=== PATIENT | male | born 1945 | race Caucasian/White ===

== ENCOUNTER 2018-06-28 12:05 | Observation (INO) ==
--- NOTE | 2018-06-28 13:30 | XR ---
EXAM DATE: 06/28/2018 1:22 PM EST AGE/SEX: 72 years / Male INDICATIONS: Stroke symptoms, slurred speech, weakness, nausea. CLINICAL DATA: This is the patient's initial encounter. Patient reports that signs and symptoms have been present for 1 day and indicates a pain score of 0/10. MEDICAL/SURGICAL HISTORY: None. None. COMPARISON: No prior exams available for comparison. FINDINGS: Minimal airspace disease at the left lung base. The cardiomediastinal contours are unremarkable. Oss eous structures are intact. CONCLUSION: 1. Minimal left lung base atelectasis. Electronically signed by: Viraj Whitt MD 06/28/2018 1:28 PM EST
--- NOTE | 2018-06-28 13:39 | ED ---
HPI General Chief complaint: Neuro Symptoms/Deficit Stated complaint: Neuro Time Seen by Provider: 06/28/18 13:00 History of Present Illness HPI narrative: Patient is a 72-year-old male presents for evaluation of some mild slurred speech and right-sided facial droop that the patient first noted here about 0400 this a.m. Patient states he first noticed it after he woke up sat on the side of the bed and started getting up. He is also noticed some "wobbly" gait. Patient states his been happening on and off to him for some time. He is not on any blood thinners, is never had a stroke before. Does have a history of diabetes high blood pressure and high cholesterol. Denies a history of heart murmur. States symptoms are mild, started 0400, constant, associated signs symptoms in context as above. Related Data Home Medications Medication Instructions Recorded Confirmed albuterol sulfate [ProAir HFA] 1 puff INHALATION Q4-6H PRN 06/28/18 06/28/18 albuterol sulfate [Ventolin HFA] 1 puff INHALATION Q4-6H PRN 06/28/18 06/28/18 finasteride 5 mg PO DAILY 06/28/18 06/28/18 furosemide 40 mg PO DAILY 06/28/18 06/28/18 gabapentin 300 mg PO DAILY 06/28/18 06/28/18 glimepiride 4 mg PO QAM 06/28/18 06/28/18 lisinopril 40 mg PO DAILY 06/28/18 06/28/18 lovastatin 20 mg PO DAILY 06/28/18 06/28/18 metformin 500 mg PO BID 06/28/18 06/28/18 potassium chloride 10 meq PO DAILY 06/28/18 06/28/18 pramipexole 1 mg PO HS 06/28/18 06/28/18 terazosin 10 mg PO DAILY 06/28/18 06/28/18 tiotropium bromide [Spiriva 2 puff INHALATION DAILY 06/28/18 06/28/18 Respimat] umeclidinium-vilanterol [Anoro 1 inh INHALATION Q24H 06/28/18 06/28/18 Ellipta] Allergies Allergy/AdvReac Type Severity Reaction Status Date / Time No Known Allergies Allergy Verified 06/28/18 12:10 Review of Systems ROS: all other systems reviewed are negative [facility] Medical History Medical History Asthma (Acute) BPH (benign prostatic hyperplasia) (Acute) COPD (chronic obstructive pulmonary disease) (Acute) Diabetes (Acute) Diverticulosis (Acute) Hyperlipidemia (Acute) Obesity (Acute) Restless leg syndrome (Acute) Surgical History Surgical History No history of previous surgery (Acute) Social History Social History Substance History: No History of Abuse Second Hand Smoke Exposure: Yes Smoking Status: Former smoker Tobacco Type: Cigarettes How Often Do You Have a Drink Containing Alcohol: 4 or more times a week Recent Travel in [facility] within the Last 8 Weeks: No Recent Out of Country Travel within the Last 8 Weeks: No Immunization History Tetanus Immunization: Unsure Exam Narrative Exam Narrative: GENERAL: Well-developed well-nourished no obvious distress. SKIN: Focused skin assessment warm/dry. HEAD: Atraumatic. Normocephalic. EYES: Pupils equal and round. No scleral icterus. No injection or drainage. ENT: No nasal bleeding or discharge. Mucous membranes pink and moist. NECK: Trachea midline. No JVD. CARDIOVASCULAR: Regular rate and rhythm. 2 out of 6 to 3 out of 6 systolic murmur best heard in the right sternal border. RESPIRATORY: No accessory muscle use. Clear to auscultation. Breath sounds equal bilaterally. GASTROINTESTINAL: Abdomen soft, non-tender, nondistended. Hepatic and splenic margins not palpable. MUSCULOSKELETAL: No obvious deformities. No clubbing. No cyanosis. No edema. NEUROLOGICAL: Awake and alert and oriented, perhaps some mild dysarthria the patient does have a thick accent and this may be his baseline. The family states that he is speaking like his tongue is thick. There is a mild right- sided facial droop as well. 5 out of 5 strength in all 4 extremities, cerebellar testing negative. Otherwise his cranial nerves are intact. Total NIH stroke scale is 2. PSYCHIATRIC: Appropriate mood and affect; insight and judgment normal. Course Initial Documented Vital Signs Temperature 97.9 F 06/28/18 12:08 Pulse Rate 100 H 06/28/18 12:08 Respiratory Rate 18 06/28/18 12:08 Blood Pressure 156/68 H 06/28/18 12:08 Pulse Oximetry 95 06/28/18 12:08 Last Documented Vital Signs Temperature 97.7 F 06/29/18 08:00 Pulse Rate 91 H 06/29/18 08:00 Respiratory Rate 16 06/29/18 08:00 Blood Pressure 153/79 H 06/29/18 08:00 Pulse Oximetry 96 06/29/18 08:00 Sign Out Sign Out Data: Patient Sign Out occurred on 06/28/18 at 15:16. Patient's care was discussed, and care was transferred from Marquez Peter MD to Lorenza Jones DO. Sign Out Comment: Patient awaiting CT head and CTA of the head. Total NIH stroke scale of 2 for some mild dysarthria and right-sided facial droop. This appears to be a mild acute subacute CVA patient probably should be admitted. Last updated by Marquez Peetr MD at 06/28/18 15:08 Post-Handoff Eval: Patient signed out to me by Dr. Peter. 72yM presenting with right facial droop and dysarthria starting at 04:00 today, on my exam only has slight dysarthria but no facial droop, extremity weakness, aphasia, or other neuro deficits. His workup thus far is essentially unremarkable, will need to stay for TIA/ CVA pathway (MRI, echo, etc.). Patient understands and agrees with plan. Medical Decision Making MDM Narrative Medical Screen Exam Complete: Yes Emergency Medical Condition: Yes Lab Data Result diagrams: 06/29/18 06:19 06/29/18 06:19 Lab Results 06/28/18 06/28/18 06/28/18 Range/Units 13:10 13:10 13:29 WBC 9.0 (4.0-11.0) th/mm3 RBC 4.11 L (4.50-5.90) mil/mm3 Hgb 12.7 L (13.0-17.0) gm/dL Hct 36.6 L (39.0-51.0) % MCV 89.1 (80.0-100.0) fL MCH 30.8 (27.0-34.0) pg MCHC 34.6 (32.0-36.0) % RDW 15.6 (11.6-17.2) % Plt Count 201 (150-450) th/mm3 MPV 8.1 (7.0-11.0) fL Neut % (Auto) 70.0 (16.0-70.0) % Lymph % (Auto) 20.4 (9.0-44.0) % [place] % (Auto) 7.7 (0.0-8.0) % Eos % (Auto) 1.3 (0.0-4.0) % Baso % (Auto) 0.6 (0.0-2.0) % Neut # (Auto) 6.3 (1.8-7.7) th/mm3 Lymph # (Auto) 1.8 (1.0-4.8) th/mm3 [place] # (Auto) 0.7 (0.0-0.9) th/mm3 Eos # (Auto) 0.1 (0.0-0.4) th/mm3 Baso # (Auto) 0.1 (0.0-0.2) th/mm3 WBC Differential . Differential Comment Auto diff final Sodium 136 (136-145) meq/L Potassium 3.7 (3.5-5.1) meq/L Chloride 97 L (98-107) meq/L Carbon Dioxide 29.2 (21.0-32.0) meq/L Anion Gap 10 (5-15) meq/L BUN 40 H (7-18) mg/dL Creatinine 1.52 H (0.60-1.30) mg/dL Estimated GFR 45 L (>89) mL/min POC Glucose (68-110) mg/dl Random Glucose 273 H (74-106) mg/dL Calcium 8.8 (8.5-10.1) mg/dL Magnesium 2.3 (1.5-2.5) mg/dL Total Bilirubin 0.6 (0.2-1.0) mg/dL AST 8 L (15-37) U/L ALT 30 (12-78) U/L Alkaline Phosphatase 83 (45-117) U/L Troponin I Less than 0.02 L (0.02-0.05) ng/mL Total Protein 7.2 (6.4-8.2) g/dL Albumin 3.3 L (3.4-5.0) g/dL Triglycerides (42-150) mg/dL Cholesterol (120-200) mg/dL LDL Cholesterol, Calc (0-99) mg/dL HDL Cholesterol (40.0-60.0) mg/dL Cholesterol/HDL Ratio Ratio Urine Color Yellow (Yellw/Straw) Urine Clarity Hazy H (Clear) Urine pH 5.0 (5.0-8.5) Ur Specific Devon 1.019 (1.002-1.035) Urine Protein 30 H (Neg-Trace) mg/dL Urine Glucose (UA) 150 H (Negative) mg/dL Urine Ketones Negative (Negative) mg/dL Urine Occult Blood Negative (Negative) Urine Nitrate Negative (Negative) Urine Bilirubin Negative (Negative) Urine Urobilinogen Less than 2 (Less than 2) mg/dL Ur Leukocyte Esterase Negative (Negative) Urine WBC 2 (0-5) /hpf Ur Squamous Epith Cells 1 (0-5) /hpf Hyaline Casts 11 (0-3) /lpf Micro UA Comment Culture not ind Ur Microscopic Review Not Reportable Urine Culture Comments Culture not ind 06/28/18 06/29/18 06/29/18 Range/Units 20:30 06:19 06:19 WBC 8.8 (4.0-11.0) th/mm3 RBC 4.63 (4.50-5.90) mil/mm3 Hgb 14.3 (13.0-17.0) gm/dL Hct 40.6 (39.0-51.0) % MCV 87.8 (80.0-100.0) fL MCH 30.9 (27.0-34.0) pg MCHC 35.2 (32.0-36.0) % RDW 15.3 (11.6-17.2) % Plt Count 198 (150-450) th/mm3 MPV 8.3 (7.0-11.0) fL Neut % (Auto) 72.9 H (16.0-70.0) % Lymph % (Auto) 18.8 (9.0-44.0) % [place] % (Auto) 6.2 (0.0-8.0) % Eos % (Auto) 1.6 (0.0-4.0) % Baso % (Auto) 0.5 (0.0-2.0) % Neut # (Auto) 6.4 (1.8-7.7) th/mm3 Lymph # (Auto) 1.7 (1.0-4.8) th/mm3 [place] # (Auto) 0.5 (0.0-0.9) th/mm3 Eos # (Auto) 0.1 (0.0-0.4) th/mm3 Baso # (Auto) 0.0 (0.0-0.2) th/mm3 WBC Differential . Differential Comment Auto diff final Sodium 139 (136-145) meq/L Potassium 3.5 (3.5-5.1) meq/L Chloride 101 (98-107) meq/L Carbon Dioxide 29.4 (21.0-32.0) meq/L Anion Gap 9 (5-15) meq/L BUN 26 H (7-18) mg/dL Creatinine 0.90 (0.60-1.30) mg/dL Estimated GFR 83 L (>89) mL/min POC Glucose 164 H (68-110) mg/dl Random Glucose 154 H D (74-106) mg/dL Calcium 8.6 (8.5-10.1) mg/dL Magnesium (1.5-2.5) mg/dL Total Bilirubin (0.2-1.0) mg/dL AST (15-37) U/L ALT (12-78) U/L Alkaline Phosphatase (45-117) U/L Troponin I (0.02-0.05) ng/mL Total Protein (6.4-8.2) g/dL Albumin (3.4-5.0) g/dL Triglycerides 408 H (42-150) mg/dL Cholesterol 149 (120-200) mg/dL LDL Cholesterol, Calc (0-99) mg/dL HDL Cholesterol 24.1 L (40.0-60.0) mg/dL Cholesterol/HDL Ratio 6.18 Ratio Urine Color (Yellw/Straw) Urine Clarity (Clear) Urine pH (5.0-8.5) Ur Specific [place] (1.002-1.035) Urine Protein (Neg-Trace) mg/dL Urine Glucose (UA) (Negative) mg/dL Urine Ketones (Negative) mg/dL Urine Occult Blood (Negative) Urine Nitrate (Negative) Urine Bilirubin (Negative) Urine Urobilinogen (Less than 2) mg/dL Ur Leukocyte Esterase (Negative) Urine WBC (0-5) /hpf Ur Squamous Epith Cells (0-5) /hpf Hyaline Casts (0-3) /lpf Micro UA Comment Ur Microscopic Review Urine Culture Comments 11/08/18 Range/Units 08:22 WBC (4.0-11.0) th/mm3 RBC (4.50-5.90) mil/mm3 Hgb (13.0-17.0) gm/dL Hct (39.0-51.0) % MCV (80.0-100.0) fL MCH (27.0-34.0) pg MCHC (32.0-36.0) % RDW (11.6-17.2) % Plt Count (150-450) th/mm3 MPV (7.0-11.0) fL Neut % (Auto) (16.0-70.0) % Lymph % (Auto) (9.0-44.0) % [place] % (Auto) (0.0-8.0) % Eos % (Auto) (0.0-4.0) % Baso % (Auto) (0.0-2.0) % Neut # (Auto) (1.8-7.7) th/mm3 Lymph # (Auto) (1.0-4.8) th/mm3 [place] # (Auto) (0.0-0.9) th/mm3 Eos # (Auto) (0.0-0.4) th/mm3 Baso # (Auto) (0.0-0.2) th/mm3 WBC Differential Differential Comment Sodium (136-145) meq/L Potassium (3.5-5.1) meq/L Chloride (98-107) meq/L Carbon Dioxide (21.0-32.0) meq/L Anion Gap (5-15) meq/L BUN (7-18) mg/dL Creatinine (0.60-1.30) mg/dL Estimated GFR (>89) mL/min POC Glucose 187 H (68-110) mg/dl Random Glucose (74-106) mg/dL Calcium (8.5-10.1) mg/dL Magnesium (1.5-2.5) mg/dL Total Bilirubin (0.2-1.0) mg/dL AST (15-37) U/L ALT (12-78) U/L Alkaline Phosphatase (45-117) U/L Troponin I (0.02-0.05) ng/mL Total Protein (6.4-8.2) g/dL Albumin (3.4-5.0) g/dL Triglycerides (42-150) mg/dL Cholesterol (120-200) mg/dL LDL Cholesterol, Calc (0-99) mg/dL HDL Cholesterol (40.0-60.0) mg/dL Cholesterol/HDL Ratio Ratio Urine Color (Yellw/Straw) Urine Clarity (Clear) Urine pH (5.0-8.5) Ur Specific Devon (1.002-1.035) Urine Protein (Neg-Trace) mg/dL Urine Glucose (UA) (Negative) mg/dL Urine Ketones (Negative) mg/dL Urine Occult Blood (Negative) Urine Nitrate (Negative) Urine Bilirubin (Negative) Urine Urobilinogen (Less than 2) mg/dL Ur Leukocyte Esterase (Negative) Urine WBC (0-5) /hpf Ur Squamous Epith Cells (0-5) /hpf Hyaline Casts (0-3) /lpf Micro UA Comment Ur Microscopic Review Urine Culture Comments Imaging Data Radiologist's impression: Chest X-Ray 06/28/18 13:00 CONCLUSION: 1. Minimal left lung base atelectasis. Head CT 06/28/18 13:00 CONCLUSION: 1. No acute intracranial abnormality. . Head CTA 06/28/18 13:00 CONCLUSION: 1. Negative CTA Head. 2. No evidence of intraluminal filling defects or steno-occlusive changes. 3. Patent dural sinuses and cortical veins; no evidence of venoocclusive disease. . Neck CTA 06/28/18 13:00 CONCLUSION: 1. Mild eccentric calcified plaque in both carotid arteries. 2. No evidence of intraluminal filling defects or significant steno-occlusive disease. 3. Patent vertebral arteries. Head MRI 06/28/18 17:12 CONCLUSION: Within normal limits for age. No bleed, acute infarct or other acute intracranial abnormality. Discharge Plan Discharge Disposition Patient Disposition: 30 Still Patient Discharge Condition Condition: Stable Discharge Details Anticipated Discharge Date: 06/29/18 Diagnosis: Dysarthria, Acute CVA (cerebrovascular accident) Physicians Team ED Provider: Lorenza Jones Primary Care Provider: Francisco Walton Attending Provider: Devon Gay Status ED Status: Left Department Discharge Information Discharge Date/Time: 06/28/18 19:48
[2018-06-28 13:54] LABS: Baso # (Auto) 0.1 th/mm3 (0.0-0.2); Baso % (Auto) 0.6 % (0.0-2.0); Eos # (Auto) 0.1 th/mm3 (0.0-0.4); Eos % (Auto) 1.3 % (0.0-4.0); Hematocrit 36.6 % (39.0-51.0); Hemoglobin 12.7 gm/dL (13.0-17.0); Lymph # (Auto) 1.8 th/mm3 (1.0-4.8); Lymph % (Auto) 20.4 % (9.0-44.0); Mean Corpuscular HGB Conc 34.6 % (32.0-36.0); Mean Corpuscular Hemoglobin 30.8 pg (27.0-34.0); Mean Corpuscular Volume 89.1 fL (80.0-100.0); Mean Platelet Volume 8.1 fL (7.0-11.0); Mono # (Auto) 0.7 th/mm3 (0.0-0.9); Mono % (Auto) 7.7 % (0.0-8.0); Neut # (Auto) 6.3 th/mm3 (1.8-7.7); Platelet Count 201 th/mm3 (150-450); Red Blood Count 4.11 mil/mm3 (4.50-5.90); Red Cell Distribution Width 15.6 % (11.6-17.2)
[2018-06-28 14:07] LABS: Bilirubin,Urine Negative (Negative); Clarity,Urine Hazy (Clear); Color,Urine Yellow (Yellw/Straw); Glucose,Urine (UA) 150 mg/dL (Negative); Hyaline Casts,Urine 11 /lpf (0-3); Leukocyte Esterase,Urine Negative (Negative); Nitrite,Urine Negative (Negative); Specific Gravity,Urine 1.019 (1.002-1.035); Squamous Epithelial Cell,Urine 1 /hpf (0-5)
[2018-06-28 14:11] LABS: Albumin 3.3 g/dL (3.4-5.0); Anion Gap 10 meq/L (5-15); Aspartate Aminotransferase 8 U/L (15-37); Blood Urea Nitrogen 40 mg/dL (7-18); Calcium 8.8 mg/dL (8.5-10.1); Carbon Dioxide 29.2 meq/L (21.0-32.0); Chloride 97 meq/L (98-107); Glomerular Filtration Rate 45 mL/min (>89); Glucose,Random 273 mg/dL (74-106); Magnesium 2.3 mg/dL (1.5-2.5); Potassium 3.7 meq/L (3.5-5.1); Sodium 136 meq/L (136-145)
[2018-06-28 14:12] LABS: Alanine Aminotransferase 30 U/L (12-78)
[2018-06-28 14:16] LABS: Alkaline Phosphatase 83 U/L (45-117); Total Protein 7.2 g/dL (6.4-8.2)
--- NOTE | 2018-06-28 15:54 | CT ---
EXAM DATE: 06/28/2018 3:51 PM EST AGE/SEX: 72 years / Male INDICATIONS: Slurred speech, visual disturbance CLINICAL DATA: This is the patient's initial encounter. Patient reports that signs and symptoms have been present for 1 day and indicates a pain score of 0/10. MEDICAL/SURGICAL HISTORY: Chronic obstructive pulmonary disease. Diabetes. None. RADIATION DOSE: 35.29 CTDI (mGy) COMPARISON: No prior exams available for comparison. TECHNIQUE: CT of the head without contrast. Using automated exposure control and adjustment of the mA and/or kV according to patient size, radiation dose was kept as low as reasonably achievable to ob tain optimal diagnostic quality images. DICOM format image data is available electronically for revi ew and comparison. FINDINGS: Cerebrum: The ventricles are normal for age. No evidence of midline shift, mass lesion, hemorrhage o r acute infarction. No extraaxial fluid collections are seen. Posterior Fossa: The cerebellum and brainstem are intact. The 4th ventricle is midline. The cerebe llopontine angle is unremarkable. Extracranial: The visualized portion of the orbits is intact. Skull: The calvaria is intact. No evidence of skull fracture. CONCLUSION: 1. No acute intracranial abnormality. . Electronically signed by: Viraj Whitt MD 06/28/2018 3:53 PM EST
--- NOTE | 2018-06-28 16:54 | CT ---
EXAM DATE: 06/28/2018 4:49 PM EST AGE/SEX: 72 years / Male INDICATIONS: Slurred speech, visual disturbance CLINICAL DATA: This is the patient's initial encounter. Patient reports that signs and symptoms have been present for 1 day and indicates a pain score of 0/10. MEDICAL/SURGICAL HISTORY: Chronic obstructive pulmonary disease. Diabetes. None. RADIATION DOSE: 28.30 CTDI (mGy) ; Combined studies COMPARISON: No prior exams available for comparison. TECHNIQUE: Volumetric scanning was performed using a multirow detector CT scanner during bolus infus ion of 70 ml Omnipaque 350 (iohexol) nonionic water-soluble contrast as a cumulative dose for multip le exams. The data was postprocessed with a variety of visualization algorithms including full-volu me maximum intensity projection, multiplanar sliding thin-slab reformation, curved-planar reformation , and surface-rendering techniques. Using automated exposure control and adjustment of the mA and/or kV according to patient size, radiation dose was kept as low as reasonably achievable to obtain opti mal diagnostic quality images. DICOM format image data is available electronically for review and co mparison. FINDINGS: Aortic Arch: There is a three-vessel origin of the great vessels from the aorta. No evidence of ost ial narrowing Right Carotid: The common carotid artery is intact. The carotid bulb has a normal configuration wit hout ulceration or narrowing. Mild eccentric calcified plaque is noted. The internal carotid artery l umen is smooth without stenosis. The external carotid artery is intact. Left Carotid: The common carotid artery is intact. The carotid bulb has a normal configuration with out ulceration or narrowing. Mild eccentric calcified plaque is noted. The internal carotid artery l umen is smooth without stenosis. The external carotid artery is intact. Vertebrals: The vertebral arteries have a symmetric diameter. No stenotic lesions are seen. Percent stenosis is calculated using the diameter of the stenotic region over the diameter of the nor mal distal internal carotid artery. CONCLUSION: 1. Mild eccentric calcified plaque in both carotid arteries. 2. No evidence of intraluminal filling defects or significant steno-occlusive disease. 3. Patent vertebral arteries. Electronically signed by: Earle Pearson MD 06/28/2018 4:53 PM EST
--- NOTE | 2018-06-28 17:00 | CT ---
EXAM DATE: 06/28/2018 4:50 PM EST AGE/SEX: 72 years / Male INDICATIONS: Slurred speech and visual disturbance CLINICAL DATA: This is the patient's initial encounter. Patient reports that signs and symptoms have been present for 1 day and indicates a pain score of 0/10. MEDICAL/SURGICAL HISTORY: Chronic obstructive pulmonary disease. Diabetes. None. RADIATION DOSE: 28.30 CTDI (mGy) ; Combined studies COMPARISON: No prior exams available for comparison. TECHNIQUE: Volumetric scanning was performed using a multi-row detector CT scanner during bolus infu diana of 70 ml Omnipaque 350 (iohexol) nonionic water-soluble contrast as a cumulative dose for multi ple exams. The data was post processed with a variety of visualization algorithms including full vo lume maximum intensity projection, multi-planar sliding thin slab reformation, curved planar reformat ion, and surface rendering techniques. Using automated exposure control and adjustment of the mA and /or kV according to patient size, radiation dose was kept as low as reasonably achievable to obtain o ptimal diagnostic quality images. DICOM format image data is available electronically for review and comparison. FINDINGS: There is excellent visualization of the major intracranial arteries out to the second-order branch ve ssels. There is no evidence for aneurysm, vessel truncation or stenosis, and no evidence for vascula r malformation. CONCLUSION: 1. Negative CTA Head. 2. No evidence of intraluminal filling defects or steno-occlusive changes. 3. Patent dural sinuses and cortical veins; no evidence of venoocclusive disease. . Electronically signed by: Earle Pearson MD 06/28/2018 4:59 PM EST
[2018-06-28] MEDS ORDERED: Acetaminophen 325 MG Tablet PO PRN (17:58)
--- NOTE | 2018-06-28 18:11 | P.HPIM ---
History of Present Illness Primary Care Physician: Francisco Walton DO History of Present Illness: Patient is a 72-year-old male patient with a past medical history which includes DM type 2, HTN, hyperlipidemia, restless leg syndrome nicotine dependence, BPH and COPD who presents for evaluation of some mild slurred speech and right-sided facial droop that the patient first noted about 0400 this a.m. Patient states he first noticed it after he woke up sat on the side of the bed and started getting up. He is also noticed some "wobbly " gait. Patient had company staying with him and told him his speech was slurred. He reports he is not on any blood thinners, and has never had a TIA/ CVA. Patient denies fevers, chills, N/V/D/C, SOB or chest pain. PMH: DM type 2, HTN, hyperlipidemia, restless leg syndrome nicotine dependence, BPH and COPD PSxH: Denies prior surgeries FMH: Father had asthma Paternal uncle had cancer unknown type Social history: Lives with spouse ETOH 1 glass of wine daily with dinner Tobacco use 1 PPD x 56 years Medications and Allergies Allergies Allergy/AdvReac Type Severity Reaction Status Date / Time No Known Allergies Allergy Verified 06/28/18 12:10 Home Medications Medication Instructions Recorded Confirmed Type albuterol sulfate [ProAir HFA] 1 puff INHALATION Q4-6H PRN 06/28/18 06/28/18 History albuterol sulfate [Ventolin HFA] 1 puff INHALATION Q4-6H PRN 06/28/18 06/28/18 History finasteride 5 mg PO DAILY 06/28/18 06/28/18 History furosemide 40 mg PO DAILY 06/28/18 06/28/18 History gabapentin 300 mg PO DAILY 06/28/18 06/28/18 History glimepiride 4 mg PO QAM 06/28/18 06/28/18 History lisinopril 40 mg PO DAILY 06/28/18 06/28/18 History lovastatin 20 mg PO DAILY 06/28/18 06/28/18 History metformin 500 mg PO BID 06/28/18 06/28/18 History potassium chloride 10 meq PO DAILY 06/28/18 06/28/18 History pramipexole 1 mg PO HS 06/28/18 06/28/18 History terazosin 10 mg PO DAILY 06/28/18 06/28/18 History tiotropium bromide [Spiriva 2 puff INHALATION DAILY 06/28/18 06/28/18 History Respimat] umeclidinium-vilanterol [Anoro 1 inh INHALATION Q24H 06/28/18 06/28/18 History Ellipta] Active Medications: Active Medications Acetaminophen (Tylenol) 650 mg PO Q4H PRN PRN Reason: Temp > 100.4 Al Hydroxide/Mg Hydroxide (Milk Of Zbigniew Norman) 30 ml PO Q12H PRN PRN Reason: Mild Constipation Ondansetron HCl (Zofran Inj) 4 mg IV.PUSH Q6H PRN PRN Reason: NAUSEA OR VOMITING Senna/Docusate Sodium (Cely-Colace) 1 tab PO BID GAIL Sodium Chloride (Ns Flush) 2 ml IV.FLUSH PRN PRN PRN Reason: FLUSH AFTER USING IV ACCESS Physical Exam Vital signs: Last Vital Signs Temp 97.9 F 06/28/18 12:08 Pulse 77 06/28/18 17:00 Resp 18 06/28/18 16:07 BP 160/72 H 06/28/18 17:00 Pulse Ox 96 06/28/18 17:00 Narrative: GENERAL: This is a well-nourished, well-developed patient, in no apparent distress. CARDIOVASCULAR: Regular rate and rhythm with 2/6 systolic murmur RESPIRATORY: Clear to auscultation. Breath sounds equal bilaterally. No wheezes , rales, or rhonchi. GASTROINTESTINAL: Abdomen soft, non-tender, nondistended. Normal active bowel sounds MUSCULOSKELETAL: No focal deficits noted equal strength bilaterally NEURO: Alert & Oriented. No facial droop. No focal deficits noted Results Labs CBC & Chem 7: 06/28/18 13:10 06/28/18 13:10 Caprini VTE Risk Assessment Caprini VTE Risk Assessment: No/Low Risk (score <= 1) Caprini Risk Assessment Model: Point Value = 1 Point Value = 2 Point Value = 3 Point Value = 5 Age 41-60 Minor surgery BMI > 25 kg/m2 Swollen legs Varicose veins or History of unexplained or recurrent spontaneous Oral contraceptives or hormone replacement Sepsis (< 1 month) Serious lung disease, including pneumonia (< 1 month) Abnormal pulmonary function Acute myocardial infarction Congestive heart failure (< 1 month) History of inflammatory bowel disease Medical patient at bed rest Age 61-74 Arthroscopic surgery Major open surgery (> 45 min) Laparoscopic surgery (> 45 min) Malignancy Confined to bed (> 72 hours) Immobilizing plaster cast Central venous access Age >= 75 History of VTE Family history of VTE Factor V Leiden Prothrombin [id number] Lupus anticoagulant Anticardiolipin antibodies Elevated serum homocysteine Heparin-induced thrombocytopenia Other congenital or acquired thrombophilia Stroke (< 1 month) Elective arthroplasty Hip, pelvis, or leg fracture Acute spinal cord injury (< 1 month) Prophylaxis Regimen: Total Risk Factor Score Risk Level Prophylaxis Regimen 0-1 Low Early ambulation 2 Moderate Order ONE of the following: *Sequential Compression Device (SCD) *Heparin 5000 units SQ BID 3-4 Higher Order ONE of the following medications: *Heparin 5000 units SQ TID *Enoxaparin/Lovenox 40 mg SQ daily (WT < 150 kg, CrCl > 30 mL/min) *Enoxaparin/Lovenox 30 mg SQ daily (WT < 150 kg, CrCl > 10-29 mL/min) *Enoxaparin/Lovenox 30 mg SQ BID (WT < 150 kg, CrCl > 30 mL/min) AND/OR *Sequential Compression Device (SCD) 5 or more Highest Order ONE of the following medications: *Heparin 5000 units SQ TID (Preferred with Epidurals) *Enoxaparin/Lovenox 40 mg SQ daily (WT < 150 kg, CrCl > 30 mL/min) *Enoxaparin/Lovenox 30 mg SQ daily (WT < 150 kg, CrCl > 10-29 mL/min) *Enoxaparin/Lovenox 30 mg SQ BID (WT < 150 kg, CrCl > 30 mL/min) AND *Sequential Compression Device (SCD) Assessment and Plan Plan Patient is a 72-year-old male patient with a past medical history which includes DM type 2, HTN, hyperlipidemia, restless leg syndrome nicotine dependence, BPH and COPD who presents for evaluation of some mild slurred speech and right-sided facial droop that the patient first noted about 0400 this a.m. Patient states he first noticed it after he woke up sat on the side of the bed and started getting up. He is also noticed some "wobbly" gait. Patient states his been happening on and off to him for some time. He is not on any blood thinners, is never had a stroke that he is aware of before. Patient denies fevers, chills, N/V/D/C, SOB or chest pain. TIA/CVA Chest X-Ray 06/28/18 1. Minimal left lung base atelectasis. Head CT 06/28/18 1. No acute intracranial abnormality. Head CTA 06/28/18 1. Negative CTA Head. 2. No evidence of intraluminal filling defects or steno-occlusive changes. 3. Patent dural sinuses and cortical veins; no evidence of venoocclusive disease. Neck CTA 06/28/18 1. Mild eccentric calcified plaque in both carotid arteries. 2. No evidence of intraluminal filling defects or significant steno-occlusive disease. 3. Patent vertebral arteries. IV fluid NS at 75ml/H PT consult MRI brain 2 D echocardiogram Continuous telemetry Lipid profile in AM DM type 2 Accuchecks ACHS with SSI coverage HTN Allow permissive HTN up to 220/100 hyperlipidemia Continue home statin Nicotine dependence Counselled encouraged to abstain BPH Continue home medications COPD Not in acute exacerbation continue home medications Daily ETOH use CIWA protocol patient admits to a glass of wine daily with dinner, concerned that he may have a higher daily ETOH useage DVT prophylaxis with SCDs
[2018-06-28] MEDS ORDERED: ALBUTEROL SULFATE INHALATION PRN (18:40)
[2018-06-28] MEDS ORDERED: Dextrose 50% in Water 50 ML Vial IV.PUSH PRN (18:49)
[2018-06-28] MEDS ORDERED: LORazepam 1 MG Tablet PO PRN (19:11)
--- NOTE | 2018-06-28 21:10 | MR ---
EXAM DATE: 06/28/2018 9:03 PM EST AGE/SEX: 72 years / Male INDICATIONS: . right facial droop, dysarthria, CVA CLINICAL DATA: This is the patient's initial encounter. Patient reports that signs and symptoms have been present for 1 day and indicates a pain score of 0/10. MEDICAL/SURGICAL HISTORY: Hypertension. DM, Hyperlipidemia, COPD, BPH None. COMPARISON: [facility] – [place], [place] HEAD W/O CONTRAST, 06/28/2018. . TECHNIQUE: Multiplanar, multisequence examination of the brain was performed without contrast. FINDINGS: Cerebrum: The ventricles are normal for age. No evidence of midline shift, mass lesion, hemorrhage or acute infarction. No extraaxial fluid collections are seen. The pituitary gland and suprasellar cistern are normal in configuration. White Matter: No significant signal abnormalities are seen in the white matter. Posterior Fossa: The cerebellum and brainstem are intact. The 4th ventricle is midline. The cerebel lopontine angle is unremarkable. The cerebellar tonsils are normal in position. Diffusion Imaging: No focal areas of restricted diffusion are seen. No evidence of acute infarction . Extracranial: The visualized portions of the orbits and paranasal sinuses are unremarkable. CONCLUSION: Within normal limits for age. No bleed, acute infarct or other acute intracranial abnorm ality. Electronically signed by: Cristino Balbuena MD 06/28/2018 9:08 PM EST
[2018-06-28] MEDS ORDERED: Ibuprofen 600 MG Tablet PO PRN (23:00)
[2018-06-28] MEDS: Sod Chloride 0.9% Inj 1,000 ML IV.CONT SCH (23:05)
[2018-06-28] MEDS: Senna/Docusate Sodium 8.6/50 MG Tablet PO SCH (23:11)
[2018-06-28] MEDS: Insulin NovoLOG Aspart Correctional Sugar Inj SQ SCH (23:11)
[2018-06-29 07:36] LABS: Baso % (Auto) 0.5 % (0.0-2.0); Eos # (Auto) 0.1 th/mm3 (0.0-0.4); Eos % (Auto) 1.6 % (0.0-4.0); Hematocrit 40.6 % (39.0-51.0); Hemoglobin 14.3 gm/dL (13.0-17.0); Lymph # (Auto) 1.7 th/mm3 (1.0-4.8); Lymph % (Auto) 18.8 % (9.0-44.0); Mean Corpuscular HGB Conc 35.2 % (32.0-36.0); Mean Corpuscular Hemoglobin 30.9 pg (27.0-34.0); Mean Corpuscular Volume 87.8 fL (80.0-100.0); Mean Platelet Volume 8.3 fL (7.0-11.0); Mono # (Auto) 0.5 th/mm3 (0.0-0.9); Mono % (Auto) 6.2 % (0.0-8.0); Neut # (Auto) 6.4 th/mm3 (1.8-7.7); Neut % (Auto) 72.9 % (16.0-70.0); Platelet Count 198 th/mm3 (150-450); Red Blood Count 4.63 mil/mm3 (4.50-5.90); Red Cell Distribution Width 15.3 % (11.6-17.2); White Blood Count 8.8 th/mm3 (4.0-11.0)
[2018-06-29 08:21] LABS: Calcium 8.6 mg/dL (8.5-10.1); Carbon Dioxide 29.4 meq/L (21.0-32.0); Chol/HDL Ratio 6.18 Ratio; HDL Cholesterol 24.1 mg/dL (40.0-60.0); Potassium 3.5 meq/L (3.5-5.1)
[2018-06-29] MEDS: Senna/Docusate Sodium 8.6/50 MG Tablet PO SCH (08:24)
[2018-06-29] MEDS ORDERED: Umeclindinium 62.5 MCG/Vilanterol 25 MCG Inhaler INH SCH (09:00)
[2018-06-29] MEDS ORDERED: Glimepiride 4 MG Tablet PO SCH (09:00)
[2018-06-29] MEDS ORDERED: Aspirin 325 MG Tablet PO SCH (09:00)
[2018-06-29] MEDS ORDERED: Potassium Chloride 10 MEQ ER Capsule PO SCH (09:00)
[2018-06-29] MEDS ORDERED: Finasteride 5 MG Tablet PO SCH (09:00)
[2018-06-29] MEDS ORDERED: Gabapentin 300 MG Capsule PO SCH (09:00)
[2018-06-29] MEDS ORDERED: Furosemide 40 MG Tablet PO SCH (09:00)
[2018-06-29] MEDS: Insulin NovoLOG Aspart Correctional Sugar Inj SQ SCH ×2 (09:25→14:27)
--- NOTE | 2018-06-29 10:24 | ECG ---
Date Performed: 06/28/2018 Time Performed: 12:43:37 PTAGE: 72 years EKG: Sinus rhythm MODERATE INTRAVENTRICULAR CONDUCTION DELAY BORDERLINE ECG Since the PREVIOUS TRACING , no significant change noted PREVIOUS TRACIN02/11/11 DOCTOR: Santos Rodríguez Interpretating Date/Time 06/29/2018 10:23:15
--- NOTE | 2018-06-29 10:47 | P.PNIM ---
Subjective Interval history: Follow up TIA/CVA Patient reports feeling back to baseline feels ready to go home offers no concerns/complaints at this time Physical Exam Vital signs: Last Vital Signs Temp 97.7 F 06/29/18 08:00 Pulse 91 H 06/29/18 08:00 Resp 16 06/29/18 08:00 BP 153/79 H 06/29/18 08:00 Pulse Ox 96 06/29/18 08:00 Narrative: GENERAL: This is a well-nourished, well-developed patient, in no apparent distress. CARDIOVASCULAR: Regular rate and rhythm RESPIRATORY: Clear to auscultation. Breath sounds equal bilaterally. GASTROINTESTINAL: Abdomen soft, non-tender, nondistended. Normal active bowel sounds MUSCULOSKELETAL: Extremities without clubbing, cyanosis, or edema. NEURO: Alert & Oriented x4 to person, place, time, situation. Moves all ext x4 Results Labs CBC & Chem 7: 06/29/18 06:19 06/29/18 06:19 Assessment and Plan Plan Patient is a 72-year-old male patient with a past medical history which includes DM type 2, HTN, hyperlipidemia, restless leg syndrome nicotine dependence, BPH and COPD who presents for evaluation of some mild slurred speech and right-sided facial droop that the patient first noted about 0400 this a.m. Patient states he first noticed it after he woke up sat on the side of the bed and started getting up. He is also noticed some "wobbly" gait. Patient states his been happening on and off to him for some time. He is not on any blood thinners, is never had a stroke that he is aware of before. Patient denies fevers, chills, N/V/D/C, SOB or chest pain. TIA/CVA Chest X-Ray 06/28/18 1. Minimal left lung base atelectasis. Head CT 06/28/18 1. No acute intracranial abnormality. Head CTA 06/28/18 1. Negative CTA Head. 2. No evidence of intraluminal filling defects or steno-occlusive changes. 3. Patent dural sinuses and cortical veins; no evidence of venoocclusive disease. Neck CTA 06/28/18 1. Mild eccentric calcified plaque in both carotid arteries. 2. No evidence of intraluminal filling defects or significant steno-occlusive disease. 3. Patent vertebral arteries. Head MRI 06/28/18 Within normal limits for age. No bleed, acute infarct or other acute intracranial abnormality. IV fluid NS at 75ml/H PT consult Stroke navigator contacted - patient may be DC'd after he is seen by Stroke navigator 2 D echocardiogram pending - patient may be DC'd after Echocardiogram taken. Patient may follow up with PCP for results Continuous telemetry Lipid profile reviewed elevated triglycerides Dr. Gay discussed results with patient and family members/friends present at bedside. patient to follow up with PCP after DC DM type 2 Accuchecks ACHS with SSI coverage HTN Allow permissive HTN up to 220/100 hyperlipidemia Continue home statin Nicotine dependence Counselled encouraged to abstain BPH Continue home medications COPD Not in acute exacerbation continue home medications Daily ETOH use CIWA protocol patient admits to a glass of wine daily with dinner, concerned that he may have a higher daily ETOH useage DVT prophylaxis with SCDs Patient DC'd home in stable condition on a heart healthy/diabetic diet. No activity restrictions. Patient to contionue home medications and add aspirin 81 mg daily. Patient to follow up with PCP 1 week after DC Progress Note: Quality VTE Deep Vein Thrombosis/Pulmonary Embolism Present on Admission: No
[2018-06-29 11:16] VITALS: O2SAT 99
--- NOTE | 2018-06-29 14:01 | ECHRPT ---
Indication: CVA/TIA CONCLUSIONS The left ventricular systolic function is normal with an estimated ejection fraction in the range of 55-60%. Normal left ventricular size. Wall thickness is normal. No regional wall motion abnormalities are present. The left atrial size is [id number] dilated. Mitral annular calcification is present. Diffuse calcification of the aortic valve. The pulmonary valve is not well visualized. BP: / HR: Rhythm: Sinus MEASUREMENTS (Male / Female) Normal Values Technical Quality:Poor 2D ECHO LV Diastolic Diameter PLAX 4.4 cm 4.2 - 5.9 / 3.9 - 5.3 cm LV Systolic Diameter PLAX 3.3 cm IVS Diastolic Thickness 1.0 cm 0.6 - 1.0 / 0.6 - 0.9 cm LVPW Diastolic Thickness 1.1 cm 0.6 - 1.0 / 0.6 - 0.9 cm LV Relative Wall Thickness 0.5 LVOT Diameter 2.1 cm LA Systolic Diameter LX 4.4 cm 3.0 - 4.0 / 2.7 - 3.8 cm M-MODE Aortic Root Diameter MM 2.7 cm AV Cusp Separation MM 1.4 cm DOPPLER AV Peak Velocity 156.0 cm/s AV Peak Gradient 9.7 mmHg LVOT Peak Velocity 107.0 cm/s LVOT Peak Gradient 4.6 mmHg AV Area Cont Eq pk 2.4 cm MV Area PHT 4.4 cm Mitral E Point Velocity 81.9 cm/s Mitral A Point Velocity 97.2 cm/s Mitral E to A Ratio 0.8 LV E' Lateral Velocity 3.8 cm/s Mitral E to LV E' Lateral Ratio 21.6 LV E' Septal Velocity 5.3 cm/s Mitral E to LV E' Septal Ratio 15.6 PV Peak Velocity 129.0 cm/s PV Peak Gradient 6.7 mmHg FINDINGS LEFT VENTRICLE The left ventricular systolic function is normal with an estimated ejection fraction in the range of 55-60%. Normal left ventricular size. Wall thickness is normal. No regional wall motion abnormalities are present. RIGHT VENTRICLE Normal right ventricular size and systolic function. LEFT ATRIUM The left atrial size is ppyj-es-mdotlhrdun dilated. RIGHT ATRIUM The right atrial size is normal. ATRIAL SEPTUM Normal atrial septal thickness without atrial level shunting by limited color doppler interrogation. AORTA The aortic root and proximal ascending aorta are normal in size on limited imaging. MITRAL VALVE Structurally normal mitral valve. Mitral annular calcification is present. AORTIC VALVE Trileaflet aortic valve. Diffuse calcification of the aortic valve. TRICUSPID VALVE Structurally normal tricuspid valve. No tricuspid valve stenosis or regurgitation. PULMONARY VALVE The pulmonary valve is not well visualized. VESSELS The inferior vena cava is normal in size. PERICARDIUM No pericardial effusion. Cody Montes MD, FACC, [facility] [place] (Electronically Signed) Final Date:29 June 2018 14:00
[2018-06-29] MEDS: Sod Chloride 0.9% Inj 1,000 ML IV.CONT SCH (14:27)
[2018-06-29 14:59] VITALS: BP 152/75; PULSE 92; RESP 18; TEMP 98.5
[2018-06-29 21:51] LABS: Hemoglobin A1c 9.4 % (4.3-6.0)
== END 2018-06-29 16:36 | disposition home or self-care (01) ==
LOC: NEDA 12:05 → NEPE 12:05 → NEDA 19:48 → NEPGCP 19:56
PROVIDERS: ADMIT Hospitalist; ATTEND Hospitalist
DX: I10 Essential (primary) hypertension; J44.9 Chronic obstructive pulmonary disease, unspecified; G25.81 Restless legs syndrome; Z79.84 Long term (current) use of oral hypoglycemic drugs; N40.0 Benign prostatic hyperplasia without lower urinary tract symptoms; I63.9 Cerebral infarction, unspecified; Z87.891 Personal history of nicotine dependence; R47.1 Dysarthria and anarthria; R94.31 Abnormal electrocardiogram [ECG] [EKG]; Z82.5 Family history of asthma and other chronic lower respiratory diseases; E78.00 Pure hypercholesterolemia, unspecified; R29.702 NIHSS score 2; R01.1 Cardiac murmur, unspecified; E66.9 Obesity, unspecified; I65.23 Occlusion and stenosis of bilateral carotid arteries; E78.5 Hyperlipidemia, unspecified; Z68.39 Body mass index [BMI] 39.0-39.9, adult; E11.9 Type 2 diabetes mellitus without complications